=== PATIENT | male | born 1950 | race Caucasian/White ===

== ENCOUNTER → 2021-06-06 10:35 | Outpatient (BNVA) | payer MEDICARE, SELFPAY | PROVIDERS: Family Provider Family Medicine; Referring Provider Family Medicine; Visit Provider Surgery | DX: K40.90 Unilateral inguinal hernia, without obstruction or gangrene, not specified as recurrent (principal) | CPT/HCPCS: 99204 ==

== ENCOUNTER 2021-06-13 07:16 | Day surgery (SDC) | payer MEDICARE, SELFPAY ==
[2021-06-10 13:42] VITALS: BMI 28.1
[2021-06-13] VITALS (8 sets, daily range): BP systolic 142–166; BP diastolic 74–98; PULSE 67–98; RESP 16–20; TEMP 36.6–37; O2SAT 96–100
[2021-06-13] MEDS: sodium chloride 0.9% 1,000 ML 30 ML IV (07:53)
--- NOTE | 2021-06-13 08:18 | W.PM.OPSFHP ---
Same Day Surgery H&P Indication for Procedure/HPI DATE OF PROCEDURE: June 13, 2021 CHIEF COMPLAINT/INDICATIONFOR SURGICAL PROCEDURE: left inguinal hernia repair PREOP DIAGNOSIS: Left inguinal hernia PLANNED PROCEDURE: Operation Date: 06/13/21 08:50 Proposed Procedures p Laparoscopic Inguinal Hernia [id number](Left) - Eliu Denise MD Medications/Allergies* Home Medications Medication Instructions Recorded Confirmed Type aspirin 325 mg tablet 325 mg PO DAILY 06/06/21 06/13/21 History lisinopril 5 mg tablet 5 mg PO DAILY 06/06/21 06/13/21 History aspirin 81 mg tablet,delayed 81 mg PO DAILY 06/10/21 06/13/21 History release Allergies/Adverse Reactions Allergy/AdvReac Type Severity Reaction Status Date / Time No Known Allergies Allergy Verified 06/13/21 07:28 Current Medications: Generic Name Dose Route Start Last Admin Trade Name Freq PRN Reason Stop Dose Admin Sodium Chloride 1,000 mls @ 30 mls/hr 06/13/21 07:30 06/13/21 07:53 Sodium Chloride 0.9% IV 06/14/21 07:29 30 mls/hr .Q24H STEVE Administration Pertinent History/Comorbid Conditions* Medical History (Updated 06/06/21 @ 10:59 by Eliu Denise MD) Hypertension Surgical History (Updated 06/06/21 @ 10:59 by Eliu Denise MD) Status post carotid surgery Social History Smoking and tobacco status: never smoked Pertinent Exam Findings alert, oriented x 3 and regular rate & rhythm Recommendations Surgery/Procedure today Coding Level of Care 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
--- NOTE | 2021-06-13 10:30 | SUR.PHASEI ---
PT AWAKES TO VOICE STATES NO PAIN OR NAUSEA, ABDOMEN IS SOFT WITH 3 SITES WITH SKIN GLUE AND FLUFFS AND SUPPORT BRIEFS. IV TO LT HAND #20 WITH NS 250ML UP AT KVO RATE PER GRAVITY, PT ID BRACELET TO LT WRIST , PT ID'D WITH 2 IDENTIFIERS.
[2021-06-13] MEDS: HYDROcodone-acetaminophen 5-325 mg Tablet 1 TAB PO (10:59)
--- NOTE | 2021-06-13 11:02 | P.OP_ITS ---
Operative Report Date of procedure: June 13, 2021 Pre-op diagnosis: Symptomatic reducible left inguinal hernia Post-op diagnosis: Left indirect inguinal hernia Procedure done: Laparoscopic total extraperitoneal repair of left indirect inguinal hernia with Surgimax 3D mesh Pathology: none sent Surgeon: Eliu Denise Anesthesia: General Condition: stable Disposition: PACU Procedure: The patient was taken to the operating room and intubated under general anesthesia. After IV antibiotic was administered, the abdomen was prepped and draped in a sterile manner. Using a 15 blade, a 1.0 cm transverse incision was made infraumbilically on the left side. Subcutaneous tissue was divided using electrocautery and the anterior rectus sheath divided using an 11 blade. The rectus muscle was retracted laterally and the extraperitoneal space identified. A 11 mm port was placed and 12 mm of pneumoperitoneum was created. A 10 mm 30? scope was introduced and the retrorectus space was opened using the camera up to the pubic symphysis and 5 mm ports were placed in the midline, one 2- fingerbreadths above the pubic symphysis and the other midway between these two ports under direct visualization. Blunt dissection was carried out to open up the tissue in the midline and to the pubic symphysis, which was identified. The dissection was then carried laterally where the iliopubic tract was identified. There was no femoral, obturator or direct hernia noted. The inferior epigastric artery was identified and dissection was carried posterior to it and laterally, the space was opened up to the level of the umbilicus superior to the anterior superior iliac spine. I then proceeded to dissect out the spermatic cord and the large indirect hernial sac was reduced . 15 x 10cm Surgimax 3D mesh was rolled and introduced through the 10 mm port and then rolled laterally and apposed well against the abdominal wall to cover the myopectineal orifice completely. 10 Cc of 0.5% Marcaine was infiltrated into the preperitoneal space. The extraperitoneal space was desufflated under direct visualization to ensure no slippage of hernial sac under the mesh. All ports were removed, the anterior rectus fascia at the infraumbilical port closed using figure of eight 0 Vicryl sutures, subcutaneous tissue approximated using 3-0 Vicryl sutures and skin at all three port sites were closed using running subcuticular 4-0 Monocryl sutures and Dermabond. 10 mL of 0.5% Marcaine was infiltrated at the port sites. The patient was stable throughout the procedure.
--- NOTE | 2021-06-13 14:40 | ANE.PACU2 ---
Inpatient post-anesthesia follow up: Airway intact: Yes Vital signs: Temperature 97.8 F Pulse Rate 93 Respiratory Rate 16 Blood Pressure 147/93 Pulse Oximetry 96 Oxygen Delivery Me thod Room Air Oxygen Flow Rate 8 Fraction of Inspir ed Oxygen Hydration adequate: Yes Nausea and vomiting: No Pain level: 1 Mental status: Baseline
== END 2021-06-13 11:13 | disposition home or self-care (01) ==
PROVIDERS: PCP Family Medicine; Visit Provider Surgery
PROC: (CPT 49650; principal; 2021-06-13 08:40)
DX: K40.90 Unilateral inguinal hernia, without obstruction or gangrene, not specified as recurrent (principal); Z79.82 Long term (current) use of aspirin; I10 Essential (primary) hypertension
CPT/HCPCS: 49650; C1781; J0690; J1100; J2250; J2405; J2704; J3010; J3490; J7030

== ENCOUNTER → 2021-06-21 13:04 | Outpatient (BNVA) | payer MEDICARE, SELFPAY | PROVIDERS: PCP Family Medicine; Visit Provider Surgery | DX: Z98.890 Other specified postprocedural states (principal); Z87.19 Personal history of other diseases of the digestive system ==

== ENCOUNTER 2022-08-08 08:59 | Outpatient (CLI) | payer MEDICARE, SELFPAY ==
--- NOTE | 2022-08-08 09:10 | USCV_ITS ---
Jose Martinez Age: 72 Gender: M : 1950 Exam Date: 08/08/2022 09:33 Ordering Phys: Jourdan Mayorga Technologist: CT Exam Location: [facility] – [place]_ Indication: rt ica occlusion Risk Factors: Previous Vascular Surgery: Right Brachial BP: / Left Brachial BP: / Right Left Velocity (cm/s) Spectral Plaque Velocity (cm/s) Spectral Plaque Syst/Diast Broadening Syst/Diast Broadening 50.50/ 10.90 Prox CCA 115.30/ 30.10 48.90/ 12.40 Mid CCA 108.60/ 33.40 42.00/ 11.00 Distal CCA 87.40 / 22.90 / Prox ICA 84.60 / 25.00 / Mid ICA 97.30 / 30.60 / Distal ICA 102.00/ 31.50 300.50 ECA 123.00 ICA/CCA 0.88 Antegrade Vertebral Antegrade 83.20/ 30.40 cm/s 38.10/ 0.00 cm/s Bi Subclavian Bi 167.0 183.3 0 0 FINDINGS known rt ica occlusion unchanged since 2014 CONCLUSIONS Chronic RIGHT ICA occlusion Left ICA stenosis <50%. Prior left CEA Normal antegrade Doppler flow noted in the right vertebral artery. Normal antegrade Doppler flow noted in the left vertebral artery. Grey Cedeno MD (Electronically Signed) Final Date: 08 August 2022 11:05 S
== END 2022-08-08 09:00 | disposition home or self-care (01) ==
PROVIDERS: PCP Family Medicine; Visit Provider Surgery Vascular Surgery
DX: I65.21 Occlusion and stenosis of right carotid artery (principal)
CPT/HCPCS: 93880

== ENCOUNTER 2023-07-27 08:49 | Outpatient (CLI) | payer MEDICARE, SELFPAY ==
--- NOTE | 2023-07-27 08:56 | USCV_ITS ---
Jose Martinez Age: 73 Gender: M : 1950 Exam Date: 07/27/2023 09:04 Ordering Phys: Jourdan Mayorga Technologist: TASHA [place] [facility] [place]: KNOWN RIGHT ICA OCCLUSION, LEFT CEA Risk Factors: Previous Vascular Surgery: Right Brachial BP: / Left Brachial BP: / Right Left Velocity (cm/s) Spectral Plaque Velocity (cm/s) Spectral Plaque Syst/Diast Broadening Syst/Diast Broadening 46.20/ 10.80 Prox CCA 99.20 / 24.70 34.80/ 7.90 Mid CCA 114.80/ 32.70 38.30/ 9.30 Distal CCA 102.00/ 29.00 / Prox ICA 71.60 / 18.60 / Mid ICA 91.30 / 27.10 / Distal ICA 93.60 / 25.80 308.10 ECA 132.60 ICA/CCA 0.90 Antegrade Vertebral Antegrade 82.00/ 29.40 cm/s 66.20/ 19.10 cm/s Tri Subclavian Tri 264.9 220.1 0 0 FINDINGS Comparison:. 08/08/22 Chronic RIGHT ICA occlusion. Left carotid atherosclerosis with no high grade obstruction. Antegrade vertebral arteries. CONCLUSIONS Complete occlusion right ICA. Left ICA stenosis < 50%. No progression of stenosis. Dr. Lina Bustillo DO (Electronically Signed) Final Date: 27 July 2023 10:00 S
== END 2023-07-27 08:50 | disposition home or self-care (01) ==
LOC: RAD 08:50
PROVIDERS: PCP Family Medicine; Visit Provider Surgery Vascular Surgery
DX: I65.23 Occlusion and stenosis of bilateral carotid arteries (principal)
CPT/HCPCS: 93880